=== PATIENT | female | born 1975 | race Caucasian/White ===

== ENCOUNTER → 2017-04-21 | Outpatient (CLI) | payer OTHER ==
[~2017-04-21] VITALS: Ht 160 cm; Wt 62.6 kg
[~2017-04-21] MED LIST: CHEW500C2 PO; CITA20TA4 PO; CVS20TAB PO; FLINCHW PO; GLYC3350 PO; LIDOCAINE 2% INJ 100 MG/5 ML SDV (FOR ANES.) As Ordered ONE; NS 1,000 ML IV ONE; PROPOFOL 200 MG/20 ML VIAL As Ordered ONE; SING10TA32 PO; VITA250L PO
--- NOTE | 2017-04-21 14:01 | ROOR ---
Patient Name: Nicolle Panda Procedure Date: 04/21/2017 1:36 PM Date of : 1975 Age: 42 Room: [facility] Gender: Female Note Status: Finalized Procedure: Colonoscopy Indications: Constipation Providers: Moose TURNER MD Referring MD: CAROLINE JUNG MD Requesting Provider: Medicines: Monitored Anesthesia Care Complications: No immediate complications. Procedure: Pre-Anesthesia Assessment: - The heart rate, respiratory rate, oxygen saturations, blood pressure, adequacy of pulmonary ventilation, and response to care were monitored throughout the procedure. The Colonoscope was introduced through the anus and advanced to 3 cm into the ileum. The colonoscopy was performed without difficulty. The patient tolerated the procedure well. The quality of the bowel preparation was good. Findings: The perianal and digital rectal examinations were normal. The colon (entire examined portion) was redundant. A diffuse area of mild melanosis was found in the entire colon. Two sessile polyps were found in the sigmoid colon and ascending colon. The polyps were diminutive in size. These polyps were removed with a cold snare. Resection and retrieval were complete. The exam was otherwise without abnormality on direct and retroflexion views. Impression: - Redundant colon. 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 - Small internal hemorrhoids. - Two diminutive polyps in the sigmoid colon and in the ascending colon, removed with a cold snare. Resected and retrieved. - The examination of the colon and terminal ileum was otherwise normal on direct and retroflexion views. Recommendation: - Continue present medications. - Await pathology results. - Telephone endoscopist for pathology results in 2 weeks. Moose Turner MD Moose TURNER MD 04/21/2017 2:01:05 PM This report has been signed electronically. Number of Addenda: 0 Note Initiated On: 04/21/2017 1:36 PM Estimated Blood Loss: Estimated blood loss: none.
[2017-04-21 14:20] VITALS: BP 127/69
== END ==
LOC: M OPP 11:55
PROVIDERS: ATTEND Internal Medicine Gastroenterology
DX: K59.00 Constipation, unspecified (principal); K63.89 Other specified diseases of intestine; D12.5 Benign neoplasm of sigmoid colon; D12.2 Benign neoplasm of ascending colon; Q43.8 Other specified congenital malformations of intestine; F41.9 Anxiety disorder, unspecified; F32.9 Major depressive disorder, single episode, unspecified; R19.7 Diarrhea, unspecified; J30.2 Other seasonal allergic rhinitis; J30.81 Allergic rhinitis due to animal (cat) (dog) hair and dander; Z79.899 Other long term (current) drug therapy

== ENCOUNTER → 2019-10-05 | Outpatient (REF) | payer OTHER ==
[~2019-10-05] MED LIST changes: -CITA20TA4 PO; +CITA20TA6 PO; -CVS20TAB PO; -LIDOCAINE 2% INJ 100 MG/5 ML SDV (FOR ANES.) As Ordered ONE; -NS 1,000 ML IV ONE; +OMEP20TA9 PO; -PROPOFOL 200 MG/20 ML VIAL As Ordered ONE
== END ==
LOC: M LAB REF 16:15
PROVIDERS: ATTEND Surgery
DX: N61.1 Abscess of the breast and nipple (principal)

== ENCOUNTER → 2021-03-18 | Outpatient (CLI) | payer MEDICAID ==
[~2021-03-18] MED LIST changes: +CALC-362 PO; -CHEW500C2 PO
== END ==
LOC: M OUTALCOH 07:59
PROVIDERS: ATTEND Psychiatry & Neurology Psychiatry
DX: Z00.00 Encounter for general adult medical examination without abnormal findings (principal)

== ENCOUNTER 2021-04-18 10:00 | Outpatient (RCR) | payer MEDICAID ==
[~2021-04-18 10:00] MED LIST changes: +OMEP20TA2 PO; -OMEP20TA9 PO
== END 2021-04-22 ==
LOC: M OUTALCOH 10:00
PROVIDERS: ATTEND Psychiatry & Neurology Psychiatry
DX: F10.10 Alcohol abuse, uncomplicated (principal); F17.200 Nicotine dependence, unspecified, uncomplicated

== ENCOUNTER → 2021-04-26 | Outpatient (CLI) | payer MEDICAID | LOC: M PLALAB 10:51 | PROVIDERS: ATTEND Psychiatry & Neurology Psychiatry | DX: F10.20 Alcohol dependence, uncomplicated (principal) ==

== ENCOUNTER 2021-05-20 08:00 | Outpatient (RCR) | payer MEDICAID | END 2021-05-22 | LOC: M OUTALCOH 08:00 | PROVIDERS: ATTEND Psychiatry & Neurology Psychiatry | DX: F10.10 Alcohol abuse, uncomplicated (principal); F17.200 Nicotine dependence, unspecified, uncomplicated ==

== ENCOUNTER 2021-06-03 08:00 | Outpatient (RCR) | payer MEDICAID | END 2021-06-22 | LOC: M OUTALCOH 08:00 | PROVIDERS: ATTEND Psychiatry & Neurology Psychiatry | DX: F10.10 Alcohol abuse, uncomplicated (principal); F17.200 Nicotine dependence, unspecified, uncomplicated ==

== ENCOUNTER → 2021-06-03 | Outpatient (CLI) | payer MEDICAID, OTHER | LOC: M PLALAB 09:03 | DX: F10.20 Alcohol dependence, uncomplicated (principal) ==